=== PATIENT | male | born 1970 | race Caucasian/White ===

== ENCOUNTER 2017-12-01 04:57 | Emergency (ER) | payer OTHER ==
[2017-12-01 05:34] LABS: #Eosinphils 0.1 thou/uL (0.0-0.7); #Lymphocytes 0.6 thou/uL (1.20-3.40); #Monocytes 0.4 thou/uL (0.11-0.59); #Neutrophils 5.5 thou/uL (1.40-6.50); %Basophils 0.2 % (0.0-1.0); %Eosinophils 0.9 % (0.0-10.0); %Lymphocytes 9.1 % (21.0-51.0); %Monocytes 5.8 % (0.0-10.0); Hemoglobin 17.7 g/dL (14.0-18.0); Mean Corpuscular HGB CONC 33.4 g/dL (32.0-36.0); Mean Corpuscular Hemoglobin 31.8 pg (27.0-31.0); Mean Corpuscular Volume 95.2 fl (80.0-94.0); Mean Platelet Volume 6.4 fL (7.4-10.4); Platelet Count 192 thou/uL (130-400); RBC Distribution Width 11.7 % (11.5-14.5); Red Blood Cell (RBC) Count 5.57 mill/uL (4.70-6.10); White Blood Cell (WBC) Count 6.5 thou/uL (4.8-10.8)
[2017-12-01 05:58] LABS: ALT (SGPT) 29 U/L (8-55); AST (SGOT) 22 U/L (5-34); Albumin 4.3 g/dL (3.5-5.0); Alkaline Phosphatase 69 U/L (40-150); Anion Gap 16 mmol/L (10-20); BUN (Urea Nitrogen) 13 mg/dL (8.9-20.6); Bilirubin, Total 0.8 mg/dL (0.2-1.2); Calc. Creatinine Clearance 0 mL/min (70-130); Calcium 9.5 mg/dL (7.8-10.44); Carbon Dioxide 25 mmol/L (22-29); Chloride 103 mmol/L (98-107); Estimated GFR-MDRD 82; Globulin 3.5 g/dL (2.4-3.5); Glucose 103 mg/dL (70-105); Potassium 4.1 mmol/L (3.5-5.1); Protein, Total 7.8 g/dL (6.0-8.3); Sodium 140 mmol/L (136-145)
[2017-12-01] MEDS ORDERED: Dexamethasone 4 mg/ml Vial ONE (05:58)
[2017-12-01] MEDS ORDERED: Ketorolac Tromethamine 30 MG/ML VIAL ONE (05:58)
[2017-12-01] MEDS ORDERED: Ondansetron HCl/PF 4 MG/2 ML Vial ONE (06:07)
--- NOTE | 2017-12-01 09:33 | CT ---
PRELIMINARY REPORT/[facility]/EMERGENCY AFTER HOURS PROCEDURE: EXAM: CT Neck With Intravenous Contrast CLINICAL HISTORY: 47 years old, male; Signs and symptoms; Mass, lump, or swelling in neck; Patient HX: Left sided neck swelling TECHNIQUE: Axial computed tomography images of the neck with intravenous contrast. CONTRAST: 100 mL of ISOVUE administered intravenously. COMPARISON: No relevant prior studies available. FINDINGS: Nasopharynx: Unremarkable. Oropharynx: Unremarkable. No significant tonsillar enlargement. No peritonsillar abscess. Hypopharynx: Unremarkable. Larynx: Unremarkable. Normal epiglottis. Trachea: Unremarkable. Retropharyngeal space: Unremarkable. Submandibular/parotid glands: Bilaterally enlarged mildly hyperenhancing submandibular glands greater on the left with septal edema and minimal surrounding fluid. No definite calculus or mass detected Thyroid: Unremarkable. No enlarged or calcified nodules. Bones/joints: No acute fracture. Soft tissues: Unremarkable. Vasculature: No acute findings. Lymph nodes: Prominent submandibular lymph nodes noted No lymphadenopathy. Lung apices: Unremarkable as visualized. IMPRESSION: Bilateral submandibular sialadenitis greater on the left. No definite calculus, mass or abscess this Thank you for allowing us to participate in the care of your patient. Dictated and Authenticated by: Syed Blake MD 12/01/2017 6:40 AM Central Time ([place] & [place]) FINAL REPORT EMERGENCY AFTER HOURS CT NECK NONCONTRAST: Date: 12/01/17 Time: 0546 hours HISTORY: Left neck pain and swelling. FINDINGS: Findings agree with the preliminary report by Aguilar. The airway is patent. No tonsillar abscess is connor arent. There is bilateral prominence of the submandibular glands suggesting sialadenitis, left greate r than right. POS: [facility]
[2017-12-01] MEDS ORDERED: ISOVUE-370 76%-LOCM 1 ML ONE (09:44)
== END 2017-12-01 06:53 | disposition home or self-care (01) ==
LOC: ERS 04:57
DX: K11.20 Sialoadenitis, unspecified (principal); J02.9 Acute pharyngitis, unspecified; E78.5 Hyperlipidemia, unspecified; I10 Essential (primary) hypertension; Z79.899 Other long term (current) drug therapy
CPT/HCPCS: 70492; 80053; 85025; 87081; 87430; 96374; 96375; J1100; J1885; J2405

== ENCOUNTER 2018-01-08 11:38 | Outpatient (CLI) | payer OTHER ==
--- NOTE | 2018-01-08 13:43 | RAD ---
PA AND LATERAL CHEST: Date: 01/08/18 HISTORY: Sinusitis. FINDINGS: The cardiac silhouette and pulmonary vasculature are within normal limits. The lungs are clear. [place] us structures are intact. IMPRESSION: No acute cardiopulmonary process. POS: [facility]
== END 2018-01-08 11:39 | disposition home or self-care (01) ==
LOC: RAD 11:38
PROVIDERS: ATTEND Family Medicine
DX: J32.9 Chronic sinusitis, unspecified (principal)
CPT/HCPCS: 71046

== ENCOUNTER 2018-01-24 22:59 | Observation (INO) | payer OTHER ==
[2018-01-24] MEDS ORDERED: Bupivacaine 0.5% 10 ML VIAL ONE (23:26)
[2018-01-24] MEDS ORDERED: CEFAZOLIN/Water 2 GM/20 ML SYRINGE ONE (23:44)
--- NOTE | 2018-01-25 00:03 | RAD ---
TWO VIEWS RIGHT INDEX FINGER: Date: 01-24-18 History: Crush injury to right index finger. Patient closed finger in gun safe. FINDINGS: There is a comminuted fracture involving the distal aspect and tuft of the distal phalanx right index finger. There is separation and displacement of fracture fragments. One of the fracture fragments is displaced by approximately 4 mm. Small osseous fragment is also seen just beneath the nail bed. Give n the proximity of this fracture to the nail bed, findings are suggestive of an open fracture. There is subcutaneous edema and laceration involving the distal portion of the right index finger. There is no dislocation. There is a nondisplaced fracture extending into the distal interphalangeal joint at the base of the distal phalanx. IMPRESSION: 1. Comminuted fracture involving the distal phalanx of the right index finger. A portion of the fract ure does extend proximally into the base of the distal phalanx and subsequently into the interphalang eal joint. The fracture is just beneath the nail bed suggesting an open fracture. 2. Subcutaneous soft tissue swelling and laceration distal portion right index finger. POS: [facility]
[2018-01-25] MEDS ORDERED: Ondansetron HCl/PF 4 MG/2 ML Vial IVP PRN (02:59)
[2018-01-25] MEDS ORDERED: Acetaminophen 325 MG TAB PO PRN (02:59)
[2018-01-25] MEDS ORDERED: Ondansetron ODT 4 MG TAB SL PRN (02:59)
[2018-01-25] MEDS ORDERED: Sodium Chloride 0.9% 1,000 ML IV SCH (02:59)
[2018-01-25] MEDS ORDERED: CEFAZOLIN/Water 2 GM/20 ML SYRINGE SLOW IVP SCH (08:30)
[2018-01-25 08:36] VITALS: BMI 28.0
--- NOTE | 2018-01-25 08:45 | HP ---
DATE OF ADMISSION: 01/25/2018 CHIEF COMPLAINT: Right finger pain. HISTORY OF PRESENT ILLNESS: Mr. Mays is a 47-year-old male, who injured his right index finger. Oni ortiz was closing his gun safe when his finger was caught in the safest door. He crushed his fingertip. He had pain and bleeding. He was seen in the emergency department. He was found to have a complex nail bed laceration with distal phalanx fracture and skin laceration. He was irrigated in the emerge ncy department and a dressing was applied. He was given pain control and antibiotics. He has been c omfortable overnight. He is n.p.o. in preparation for surgery. PAST MEDICAL HISTORY: The patient denies active medical problems. PAST SURGICAL HISTORY: Approximately one year ago, he underwent open reduction and internal fixation of left radius and ulna. He has had a previous left index finger partial amputation in the past. IMAGES: X-rays of the hand demonstrate a distal phalanx fracture with displacement. ALLERGIES: No known drug allergies. FAMILY MEDICAL HISTORY: Noncontributory. PHYSICAL EXAMINATION: VITAL SIGNS: The patient is afebrile, normotensive, 98% on room air. GENERAL: He is alert, sitting upright, in no apparent distress. RESPIRATORY: Breathing comfortably. ABDOMEN: Soft, nontender, nondistended. MUSCULOSKELETAL: The patient's right hand has a bandage in place. His hand is warm and well perfuse d. There is no active drainage or bleeding. IMPRESSION: Complex nail bed laceration with distal phalanx fracture, right index finger. PLAN: The patient will need to go to the operating room for irrigation of his wounds as well as clos ure. We will repair the nail bed, close the skin, and reduce the fracture. I will likely place a K wire in the distal phalanx fracture. He can discharge to home after this. We will put him on an ant ibiotic for 5 days. He will keep the hand elevated. N.p.o. until after surgery.
[2018-01-25 09:16] VITALS: BP 182/121; TEMP 97.7
[2018-01-25] MEDS ORDERED: Midazolam HCl 2 mg/2 ml Vial ONE (09:46)
[2018-01-25] MEDS ORDERED: CEFAZOLIN/Water 2 GM/20 ML SYRINGE ONE (09:46)
[2018-01-25] MEDS ORDERED: Fentanyl 250 MCG/5 ML VIAL ONE ×2 (09:48→10:37)
[2018-01-25] MEDS ORDERED: Neomycin-Polymyxin 1 ML AMP ONE (09:49)
[2018-01-25] MEDS ORDERED: HYDROcodone/Acetaminophen 10/325 mg Tablet PO PRN (10:23)
[2018-01-25] MEDS ORDERED: Ropivacaine 0.2% HCl/PF 20 ML ONE (10:58)
[2018-01-25] MEDS ORDERED: Bupivacaine 0.5% 10 ML VIAL ONE ×2 (11:19→11:20)
--- NOTE | 2018-01-25 12:13 | OP ---
DATE OF PROCEDURE: 01/25/2018 OPERATIONS: Right index finger complex nail bed laceration repair and reduction of the distal phalan x fracture. PREOPERATIVE DIAGNOSES: Traumatic laceration to the index finger with nail bed laceration and distal phalanx fracture. POSTOPERATIVE DIAGNOSES: Traumatic laceration to the index finger with nail bed laceration and dista l phalanx fracture. COMPLICATIONS: None. ESTIMATED BLOOD LOSS: Minimal. SURGEON: Herve Franklin M.D. ANESTHESIA: General plus local. INDICATIONS: Mr. Mays is a 47-year-old male who injured his index finger in a gun safe. He had a complex laceration and disruption with distal phalanx fracture. He was indicated for operative inter vention to clean the wound and repair the nail bed as well as reduce the distal phalanx. He elected to proceed with this. DESCRIPTION OF PROCEDURE: Mr. Mays was identified in the preoperative holding area. He was vince d to the operating room after his correct extremity was marked. He was positioned supine. General a nesthesia was administered. The right upper extremity was prepped and draped in sterile fashion. We began the procedure by trimming the skin edges of injured tissue. We thoroughly irrigated with co pious lavage all of the wounds, which were complex. He had a distal phalanx fracture of the bone sienna t was irrigated as well. At this point, we elevated the nail from the nail bed. This was soaked in Betadine on the back table. We then began repair. We used a 4-0 Monocryl suture to repair the compl ex lacerations. We repaired the laceration to the finger pulp as well as the corners of the nail bed . We then proceeded to repair the nail bed itself. Finally, we tucked the nail back into its nail f old and held this in position using a suture. At this point, we evaluated with intraoperative x-ray. The fracture was reduced and there was no need for pinning. At this point, again we irrigated the wounds. We then placed a sterile dressing and an Alumafoam splint. The patient was taken to the rec overy room in good condition without complication.
--- NOTE | 2018-01-25 14:39 | RAD ---
TWO INTRAOPERATIVE FLUOROSCOPIC IMAGES RIGHT INDEX FINGER: 01/25/2018 HISTORY: Fracture of the distal phalanx right index finger. Fracture repair. FINDINGS/IMPRESSION: Two intraoperative fluoroscopic images of the right index finger are submitted for interpretation. C omminuted fracture involving the distal phalanx and predominantly tuft of the distal phalanx right in dex finger is again noted, but there is improvement in alignment of the fracture fragments. Subcutan eous edema and soft tissue irregularity is present. Correlation with intraoperative findings is elis mmended. POS: [facility]
[2018-01-25] MEDS ORDERED: Ondansetron HCl/PF 4 MG/2 ML Vial ONE (17:19)
[2018-01-25] MEDS ORDERED: PROPOFOL 200 MG/20 ML VIAL ONE (17:19)
[2018-01-25] MEDS ORDERED: ePHEDrine/0.9% NaCl/PF SYRINGE 50 mg/10 ml ONE (17:19)
[2018-01-25] MEDS ORDERED: Lidocaine 1% PF 5 ML VIAL ONE (17:19)
[2018-01-25] MEDS ORDERED: Dexamethasone 20 MG/5 ML VIAL ONE (17:19)
[2018-01-25] MEDS ORDERED: Ketorolac Tromethamine 30 MG/ML VIAL ONE (17:19)
--- NOTE | 2018-01-26 13:34 | DIS ---
DATE OF ADMISSION: 01/25/2018 DATE OF DISCHARGE: 01/25/2018 HOSPITAL COURSE: Mr. Mays is a 47-year-old male who crushed the index finger on his left hand with a gun safe. He was admitted to the hospital and then taken to the operating room for repair of the fingertip with irrigation and debridement. He tolerated the procedure as well as had a normal postop erative course. Pain was controlled. He tolerated an oral diet. DISCHARGE INSTRUCTIONS: The patient will change his dressing daily. He will take 5 days of antibiot ic and has appropriate pain control. He will follow up in the Orthopedic Clinic in 10-14 days.
== END 2018-01-25 16:14 | disposition home or self-care (01) ==
LOC: ERS 22:59 → SURG A 01-25 00:15
PROVIDERS: ADMIT Orthopaedic Surgery; ATTEND Orthopaedic Surgery
PROC: 0HQFXZZ Repair Right Hand Skin, External Approach (ICD-10-PCS; principal; 2018-01-25)
PROC: 0PST0ZZ Reposition Right Finger Phalanx, Open Approach (ICD-10-PCS; 2018-01-25)
DX: S61.310A Laceration without foreign body of right index finger with damage to nail, initial encounter (principal); S62.630A Displaced fracture of distal phalanx of right index finger, initial encounter for closed fracture; E78.5 Hyperlipidemia, unspecified; I10 Essential (primary) hypertension; Z79.899 Other long term (current) drug therapy; Z98.890 Other specified postprocedural states; W23.0XXA Caught, crushed, jammed, or pinched between moving objects, initial encounter
CPT/HCPCS: 76000; 96374; 96375; 96376; G0378; J1100; J1885; J2001; J2250; J2270; J2405; J2704; J2795; J3010; J3490

== ENCOUNTER 2018-05-06 09:58 | Outpatient (CLI) | payer OTHER ==
--- NOTE | 2018-05-06 13:23 | MRI ---
MRI LUMBAR SPINE WITHOUT CONTRAST: DATE: 05/06/18. COMPARISON: None. HISTORY: Back pain and right lower extremity pain/radiculopathy. TECHNIQUE: Multiplanar, multisequence MR imaging of the lumbar spine is provided without contrast media. FINDINGS: Sagittal STIR imaging demonstrates no focal area of osseous marrow edema. Lumbar vertebral body heig ht and alignment appears within normal limits. The conus medullaris terminates at the T12-L1 level. T12-L1: There is mild anterior osteophyte formation. No central canal or neural foraminal stenosis. L1-2: Mild bilateral facet hypertrophy. Intervertebral disk height and signal intensity is within n ormal limits with no significant central canal or neural foraminal stenosis. L2-3: Mild bilateral facet hypertrophy. Intervertebral disk height and signal intensity is within n ormal limits with no significant central canal or neural foraminal stenosis. L3-4: Mild bilateral facet hypertrophy. Intervertebral disk height and signal intensity is within n ormal limits with no significant central canal or neural foraminal stenosis. L4-5: There is disk space narrowing, disk desiccation, and mild disk bulge. No significant central canal stenosis. Mild bilateral facet hypertrophy with no significant neural foraminal stenosis. L5-S1: There is disk space narrowing, disk desiccation, and disk bulge. There is a small disk herni ation in the left paracentral region with mild inferior migration. There is mild associated left-luis eduardo ed central canal stenosis. There is a small disk protrusion in the right foraminal region and there is right facet hypertrophy with a mild degree of neural foraminal stenosis. Imaged retroperitoneal structures demonstrate no acute findings. IMPRESSION: Lower lumbar spine degenerative disk disease as described above. POS: [facility]
== END 2018-05-06 09:59 | disposition home or self-care (01) ==
LOC: MRI 09:58
PROVIDERS: ATTEND Orthopaedic Surgery
DX: M51.16 Intervertebral disc disorders with radiculopathy, lumbar region (principal); M51.37 Other intervertebral disc degeneration, lumbosacral region
CPT/HCPCS: 72148

== ENCOUNTER 2018-08-25 07:22 | Outpatient (CLI) | payer OTHER ==
--- NOTE | 2018-08-25 09:14 | CT ---
CT LUMBAR SPINE WITHOUT CONTRAST: History: Back pain radiating down the right leg x 4 months. Worsening symptoms. Comparison: None. Correlation: MRI lumbar spine 05-06-18. FINDINGS: Lumbar spine vertebral body height is maintained. No evidence of vertebral body fracture. There is a left L5 pars defect. No associated spondylolisthesis. Retroperitoneal structures are unremarkable. Visualized solid organs are unremarkable. Limited evaluation without contrast of the central spinal canal and neural foramina by technique. T10-11, T11-12: No significant central canal stenosis or foraminal narrowing. T12-L1: No significant central canal stenosis. Neural foramina are patent. L1-2: No significant central canal stenosis. Foramina are patent. L2-3: No significant central canal stenosis. Neural foramina are patent. L3-4: No significant central canal stenosis. Neural foramina are patent. L4-5: Generalized disc bulge, ligamentum flavum thickening result in mild central canal stenosis. Mil d right and mild to moderate left foraminal narrowing. L5-S1: Vacuum disc phenomenon. There is a generalized disc bulge with left subarticular component. Th ere is obscuration of the traversing left S1 nerve root. There is narrowing of the thecal sac due to disc material and hypertrophy, along with epidural lipomatosis. Moderate right and mild left foramina l narrowing. IMPRESSION: 1. Left L5 pars defect. No spondylosis. 2. Degenerative disc disease at L5-S1 with narrowing of the left thecal sac zone. There is obscuratio n transversing the left S1 nerve root. POS: [facility]
== END 2018-08-25 07:23 | disposition home or self-care (01) ==
LOC: CT 07:22
PROVIDERS: ATTEND Neurological Surgery
DX: M51.16 Intervertebral disc disorders with radiculopathy, lumbar region (principal); M51.36 Other intervertebral disc degeneration, lumbar region; M48.07 Spinal stenosis, lumbosacral region
CPT/HCPCS: 72131

== ENCOUNTER 2018-08-27 05:51 | Day surgery (SDC) | payer OTHER ==
[2018-08-26 11:06] VITALS: BMI 28.8
--- NOTE | 2018-08-27 00:21 | HP ---
HISTORY OF PRESENT ILLNESS: Mr. 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 An MRI from [place] reveals what amounts to be significant amount of epidural lipomatosis at the level of L5-S1. Most looks to be causing stress and impingement upon the exiting right L5 ne rve root. There are also some mild areas of foraminal bony stenosis. PAST MEDICAL HISTORY: No major active medical problems. PAST SURGICAL HISTORY: Open reduction and internal fixation, left radius and ulna. ALLERGIES: No known drug allergies. FAMILY HISTORY: Noncontributory. CURRENT MEDICATIONS: None. PHYSICAL EXAMINATION: NEUROLOGIC: The patient is alert and oriented x3. Gait is mildly antalgic. EXTREMITIES: Lower extremity motor exam is normal. He does have some limited range of motion second sánchez to pain in the right lower extremity. ASSESSMENT: Lumbar radiculopathy. PLAN: Dr. Wise met with the patient, reviewed imaging and advocated for a right L5-S1 decompression . He explained to the patient the risks, benefits, and alternatives to the procedure. The patient e xpressed understanding and would like to move forward with surgery as discussed. I do believe the janet gil is mentally competent and capable of making medical decisions for himself and we will move foreric sheehan with surgery as planned. Paresh Khalil PA-C dictating for Dr. Wise.
[2018-08-27] MEDS ORDERED: CEFAZOLIN/Water 2 GM/20 ML SYRINGE ONE ×2 (06:04→12:59)
[2018-08-27] MEDS ORDERED: Midazolam HCl 2 mg/2 ml Vial ONE (06:20)
[2018-08-27] MEDS ORDERED: Thrombin 5000 UNITS/5 ML VIAL ONE (06:21)
[2018-08-27] MEDS ORDERED: Bupivacaine HCl 0.5%/Epinephrine 1:200,000/PF 30 ml Vial ONE (06:21)
[2018-08-27] MEDS ORDERED: Fentanyl 100 MCG/2 ML VIAL ONE ×2 (07:03→09:10)
[2018-08-27] MEDS ORDERED: Meperidine HCl/PF 25 MG/ML VIAL ONE (08:26)
--- NOTE | 2018-08-27 08:30 | OP ---
DATE OF PROCEDURE: 08/27/2018 SURGEON: Madhav Wise M.D. [employer]AN[employer] MANAGER: Paresh Khalil PA-C. INDICATION: Pain. DIAGNOSIS: Lumbar radiculopathy. PROCEDURE: Bilateral L5 decompression. ANESTHESIA: General. TECHNIQUE: The patient was brought into the operating room and placed under general anesthesia. He was flipped from a supine to prone position on the operating room table. A linear incision was plann ed over the L5 segment. After prepping and draping and after an appropriate pause, the incision was created. Soft tissues were swept away from midline. Self-retaining retractors were placed in the wo und for optimal exposure. A C-arm image was obtained, confirmed the appropriate level. After confir thomas the appropriate level, an Adson rongeur was used to remove the spinous process of L5. High-spee d cutting drill bit as well as 2, 3 and 4-mm Kerrison was used to perform a laminectomy up through th e inferior aspect of L4. The L5 pedicles could be palpated bilaterally. The descending and exiting nerve root was identified bilaterally. The laminectomy was extended laterally to encompass the media l aspect of the facet joint in order to fully decompress the lateral recesses. The patient did have a copious amount of epidural fat present along the anterior aspect of the thecal sac and beneath both L5 nerve roots. The majority of this was suctioned away and removed. A Rizzo ball was passed into the L5 foramina bilaterally, both of which were widely patent. The wound was then copiously irrigat ed. Hemostasis was maintained throughout. The wound was then closed in anatomic layers and a pressu re dressing was applied. There were no known procedural complications.
[2018-08-27] MEDS ORDERED: HYDROmorphone 2 MG/ML VIAL ONE (08:48)
[2018-08-27] MEDS ORDERED: Ondansetron ODT 4 MG TAB ONE (10:22)
[2018-08-27] MEDS ORDERED: Glycopyrrolate 0.2 MG/ML 5 ML SYRINGE ONE (10:22)
[2018-08-27] MEDS ORDERED: Ketorolac Tromethamine 30 MG/ML VIAL ONE (10:22)
[2018-08-27] MEDS ORDERED: Dexamethasone 20 MG/5 ML VIAL ONE (10:22)
[2018-08-27] MEDS ORDERED: Lidocaine 1% PF 5 ML VIAL ONE (10:22)
[2018-08-27] MEDS ORDERED: PROPOFOL 200 MG/20 ML VIAL ONE (10:22)
[2018-08-27] MEDS ORDERED: Ondansetron HCl/PF 4 MG/2 ML Vial ONE (10:22)
[2018-08-27] MEDS ORDERED: Promethazine HCl 25 MG/ML VIAL ONE (11:31)
[2018-08-27] MEDS ORDERED: HYDROcodone/Acetaminophen 5/325 mg Tablet ONE ×2 (12:25→13:08)
== END 2018-08-27 13:20 | disposition home or self-care (01) ==
LOC: SDC 05:51 → EEVIPCON 05:51 → SDC 13:20
PROVIDERS: ATTEND Neurological Surgery
PROC: 01NB0ZZ Release Lumbar Nerve, Open Approach (ICD-10-PCS; principal; 2018-08-27)
DX: M54.16 Radiculopathy, lumbar region (principal)
CPT/HCPCS: 76001; 96374; 96375; J0670; J1100; J1170; J1885; J2001; J2175; J2250; J2405; J2550; J2704; J3010; Q0162

== ENCOUNTER 2018-09-23 10:34 | Outpatient (CLI) | payer OTHER ==
--- NOTE | 2018-09-23 13:16 | CT ---
CT LUMBAR SPINE WITHOUT CONTRAST: INDICATION: History of laminectomy 1 month ago with concern for possible seroma. FINDINGS: Lack of IV contrast limits evaluation for soft tissue fluid collections. There are laminectomy alfaro es at L5. There is vacuum disk phenomenon at L5-S1. There is a mild broad-based bulge seen at L5-S1 with mild bilateral neural foraminal narrowing. There is mild broad-based bulge at L4-5 with mild b ilateral neural foraminal narrowing. There is inflammatory infiltration of the paraspinal musculatur e at the laminectomy site at L5. No overt drainable fluid collection is grossly evident within limit ations of this noncontrast exam. No acute fracture is evident. There is a 3 mm calculus involving t he inferior pole of the right kidney. There are stable left unilateral pars defect at L5. IMPRESSION: 1. Laminectomy changes at L5. There is inflammatory infiltration of the paraspinal musculature and overlying subcutaneous tissues at the laminectomy site. The lack of IV contrast limits evaluation fo r seroma or abscess. 2. Mild neural foraminal narrowing at L4-5 and L5-S1 appears similar to a comparison CT examination dated 08/25/2018. POS: [facility]
== END 2018-09-23 10:35 | disposition home or self-care (01) ==
LOC: TBSIIMAG 10:34
PROVIDERS: ATTEND Neurological Surgery
DX: M54.16 Radiculopathy, lumbar region (principal); M99.83 Other biomechanical lesions of lumbar region; M99.84 Other biomechanical lesions of sacral region; Z98.890 Other specified postprocedural states
CPT/HCPCS: 72131

== ENCOUNTER 2018-11-17 11:57 | Outpatient (CLI) | payer OTHER ==
--- NOTE | 2018-11-17 15:01 | MRI ---
MRI RIGHT SHOULDER: Date: 11-17-18 Provided Clinical History: Right shoulder pain. FINDINGS: There is full thickness partial width tearing involving the caudal fibers of the subscapularis tendon without significant retraction. The more cranial aspect of the distal subscapularis tendon demonstra te high grade partial thickness undersurface tearing. The components of the rotator cuff appear other dean intact. There is medial subluxation of the long head biceps tendon within the bicipital groove t hat may reflect bicipital sling injury. There is no josafat biceps tendon dislocation. There is abnormal signal present within the superior labrum compatible with SLAP tear with propogatio n to involve a posterior/superior glenoid labrum in a nondisplaced manner. There is high grade partia l tearing involving the humeral attachment of the anterior band of the inferior glenohumeral ligament . There is conspicuous periarticular fluid signal intensity on the basis of the subscapularis and inf erior glenohumeral ligament tears. The amount of fluid within the glenohumeral joint appears physiologic. There is muscular strain noted involving the anterior deltoid muscle, low grade. Regional marrow and muscular signal appear otherwi se unremarkable with the exception of subcortical cyst like change within the lesser and greater tube rosities. Acromioclavicular joint osteoarthrosis is demonstrated which produces mass effect upon the subjacent supraspinatus. Rotator cuff muscular volume appears preserved. IMPRESSION: 1. Tearing of the subscapularis tendon distally as described above, including a full thickness compon ent. There is medial subluxation of the long head biceps tendon within the bicipital groove that may reflect bicipital sling injury. 2. High grade partial tearing of the humeral attachment of the anterior band of the inferior glenohum eral ligament. 3. SLAP tear. 4. Acromioclavicular joint osteoarthrosis. POS: [facility]
== END 2018-11-17 11:58 | disposition home or self-care (01) ==
LOC: MRI 11:57
PROVIDERS: ATTEND Orthopaedic Surgery
DX: S46.011A Strain of muscle(s) and tendon(s) of the rotator cuff of right shoulder, initial encounter (principal); S43.431A Superior glenoid labrum lesion of right shoulder, initial encounter; M19.011 Primary osteoarthritis, right shoulder

== ENCOUNTER 2018-11-18 07:14 | Day surgery (SDC) | payer OTHER ==
[2018-11-17 14:53] VITALS: BMI 28.0
[2018-11-18] MEDS ORDERED: Midazolam HCl 2 mg/2 ml Vial ONE (08:01)
[2018-11-18] MEDS ORDERED: CEFAZOLIN 2 GM/50 ML BAG ONE (08:01)
[2018-11-18] MEDS ORDERED: Fentanyl 100 MCG/2 ML VIAL ONE ×3 (08:02→11:33)
[2018-11-18] MEDS ORDERED: traMADol HCl 50 MG TAB PO PRN ×2 (08:54)
[2018-11-18] MEDS ORDERED: Ondansetron PF 4 MG/2 ML Vial IVP PRN (08:54)
[2018-11-18] MEDS ORDERED: Promethazine HCl 25 MG/ML VIAL IM PRN (08:54)
[2018-11-18] MEDS ORDERED: HYDROcodone/Acetaminophen 10/325 mg Tablet PO PRN ×2 (08:54)
[2018-11-18] MEDS ORDERED: Ropivacaine 0.2% 550 ML 550 ML NERVE BLCK SCH (08:54)
[2018-11-18] MEDS ORDERED: Zolpidem Tartrate 5 MG TAB PO PRN (08:54)
[2018-11-18] MEDS ORDERED: Fentanyl 100 MCG/2 ML VIAL IV PRN (08:55)
--- NOTE | 2018-11-18 10:44 | HP ---
HISTORY OF PRESENT ILLNESS: This is a very pleasant 48-year-old man who was doing some planks, trying to rehab his back and then felt a pop in his shoulder. Since that time, he has had very weak usage of the shoulder with loss of active range of motion. PAST MEDICAL HISTORY: Positive for spine surgery, migraines, hypertension, and esophageal reflux. ALLERGIES: NONE. SOCIAL HISTORY: Drinks socially. Does not smoke cigarettes. Very often, occasionally while fishing. REVIEW OF SYSTEMS: Negative for chest pain. Dyspnea on exertion. PHYSICAL EXAMINATION: GENERAL: Shows a pleasant man, in no distress. MUSCULOSKELETAL: Shoulder has passive flexion of 130 degrees with active flexion of about 90. External rotation is about 20 degrees with great external rotation strength, but very poor internal rotation strength with elevation of the elbow, so we called subscapularis test. Very tender over the bicipital groove, bruising over the proximal humerus. Neurovascularly intact. 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 PLAN: Is for open subscapularis repair and biceps tenodesis. He understands the risks of infection blood clots, transfusion, and . He elects to proceed with surgery. Job ID: [id number]
--- NOTE | 2018-11-18 11:26 | OP ---
DATE OF PROCEDURE: 11/18/2018 PREOPERATIVE DIAGNOSES: Subscapularis tear and biceps tendinitis. POSTOPERATIVE DIAGNOSES: Subscapularis tear and biceps tendinitis. PROCEDURE PERFORMED: Open repair of subscapularis tendon and biceps tenodesis. PHARMACIST: None. BLOOD LOSS: 200. SPECIMEN: None. DRAINS: None. COMPLICATIONS: None. DESCRIPTION OF PROCEDURE: The patient was taken to the operating room, where general anesthesia was induced. He was placed in a beach chair position. I made a standard deltopectoral approach and elevated the conjoined tendon. The subscapularis rupture was easily identified and retracted somewhat medially. I placed four large #5 Ethibond sutures through the tendon in a Trevor-Giovanni fashion and tagged it for later repair. I freed up the subscapularis that had a nice consistency. The biceps tendon was removed from superior glenoid tubercle. I trimmed about an inch off this and I prepared it with a Krackow type suture, measured it to the 7, I drilled the 7-hole, placed the 7 Bio-Tenodesis screw with the tendon in the hole and tied over the screw. Irrigation was performed. The subscapularis was then repaired through bone tunnels all the way to the lesser tuberosity through the cyst at the greater tuberosity and the cuff for excellent watertight repair. Also repaired the rotator interval with #1 Ethibond sutures. Irrigation was performed. Subcutaneous tissue was closed with 2-0 Vicryl and the skin was closed purvi. Sterile dressing applied. There were no complications. Job ID: [id number]
[2018-11-18] MEDS ORDERED: Ketorolac Tromethamine 30 MG/ML VIAL IVP SCH (12:00)
[2018-11-18] MEDS ORDERED: PROPOFOL 200 MG/20 ML VIAL ONE (20:51)
[2018-11-18] MEDS ORDERED: Lidocaine 1% PF 5 ML VIAL ONE (20:51)
[2018-11-18] MEDS ORDERED: Ondansetron PF 4 MG/2 ML Vial ONE (20:51)
[2018-11-18] MEDS ORDERED: Glycopyrrolate 0.2 MG/ML 5 ML SYRINGE ONE (20:51)
[2018-11-18] MEDS ORDERED: Bupivacaine 0.25% HCL 30 ML VIAL ONE (20:51)
[2018-11-18] MEDS ORDERED: Ketorolac Tromethamine 30 MG/ML VIAL ONE (20:51)
== END 2018-11-18 14:15 | disposition home or self-care (01) ==
LOC: SDC 07:14
PROVIDERS: ATTEND Orthopaedic Surgery
PROC: 0LQ10ZZ Repair Right Shoulder Tendon, Open Approach (ICD-10-PCS; principal; 2018-11-18)
PROC: 0LS10ZZ Reposition Right Shoulder Tendon, Open Approach (ICD-10-PCS; principal; 2018-11-18)
DX: S46.011A Strain of muscle(s) and tendon(s) of the rotator cuff of right shoulder, initial encounter (principal); M75.21 Bicipital tendinitis, right shoulder; S43.431A Superior glenoid labrum lesion of right shoulder, initial encounter; G43.909 Migraine, unspecified, not intractable, without status migrainosus; I10 Essential (primary) hypertension; K21.9 Gastro-esophageal reflux disease without esophagitis; F17.210 Nicotine dependence, cigarettes, uncomplicated; J45.909 Unspecified asthma, uncomplicated; Z79.51 Long term (current) use of inhaled steroids; Z79.899 Other long term (current) drug therapy; Z98.890 Other specified postprocedural states; X50.1XXA Overexertion from prolonged static or awkward postures, initial encounter
CPT/HCPCS: 93005; 93010; 96374; A4306; C1713; J1885; J2001; J2250; J2405; J2704; J2795; J3010; J7620; S0020

== ENCOUNTER 2018-12-11 22:40 | Inpatient (IN) | payer OTHER ==
[2018-12-12 01:20] VITALS: BMI 28.4
[2018-12-12] MEDS ORDERED: PROVENTIL INHALER 6.7 G (200 INHALATIONS) INH PRN (01:48)
[2018-12-12] MEDS ORDERED: hydrALAZINE 20 MG/ML VIAL SLOW IVP PRN (01:50)
[2018-12-12] MEDS ORDERED: Ondansetron PF 4 MG/2 ML Vial IVP PRN (01:53)
[2018-12-12] MEDS ORDERED: Amlodipine 5 MG TAB PO SCH ×2 (02:00→21:00)
[2018-12-12 02:15] LABS: #Lymphocytes 0.7 thou/uL (1.20-3.40); #Monocytes 0.9 thou/uL (0.11-0.59); #Neutrophils 5.3 thou/uL (1.40-6.50); %Basophils 0.4 % (0.0-1.0); %Eosinophils 0.3 % (0.0-10.0); %Lymphocytes 9.8 % (21.0-51.0); %Monocytes 13.1 % (0.0-10.0); %Neutrophils 76.4 % (42.0-75.0); Hemoglobin 13.9 g/dL (14.0-18.0); Mean Corpuscular HGB CONC 34.5 g/dL (32.0-36.0); Mean Corpuscular Hemoglobin 32.7 pg (27.0-31.0); Platelet Count 179 thou/uL (130-400); RBC Distribution Width 11.6 % (11.5-14.5); Red Blood Cell (RBC) Count 4.23 mill/uL (4.70-6.10); White Blood Cell (WBC) Count 6.9 thou/uL (4.8-10.8)
[2018-12-12] MEDS ORDERED: Losartan 25 MG TAB PO SCH ×2 (02:15→21:00)
[2018-12-12] MEDS: Sodium Chloride 0.9% 1,000 ML IV SCH ×3 (02:15→20:45)
[2018-12-12] MEDS: cefTRIAXone\\ROCEPHIN 1 GM in Sodium Chloride 0.9% 100 ML IVPB SCH (02:16)
[2018-12-12 02:29] LABS: Anion Gap 15 mmol/L (10-20); BUN (Urea Nitrogen) 26 mg/dL (8.9-20.6); Calc. Creatinine Clearance 53 mL/min (70-130); Calcium 9.1 mg/dL (7.8-10.44); Carbon Dioxide 21 mmol/L (22-29); Chloride 110 mmol/L (98-107); Estimated GFR-MDRD 34; Glucose 113 mg/dL (70-105); Lipase 8 U/L (8-78); Potassium 3.5 mmol/L (3.5-5.1); Sodium 142 mmol/L (136-145)
[2018-12-12] MEDS: Morphine 2 MG/ML SYRINGE SLOW IVP PRN (06:02)
--- NOTE | 2018-12-12 08:00 | ULT ---
RIGHT UPPER QUADRANT ULTRASOUND: Date: 12/12/18 PROVIDED CLINICAL HISTORY: Abdominal pain. FINDINGS: The visualized portions of the pancreas appear normal. The liver demonstrates no evidence for mass or intrahepatic biliary ductal dilatation. Fatty infiltration of the liver is seen. The gallbladder dem onstrates no stones, wall thickening, or pericholecystic fluid. Right kidney demonstrates no evidence for hydronephrosis or mass. Echogenic focus involving the right kidney in the mid portion may reflec t nonobstructing calculus. IMPRESSION: `. Possible small, nonobstructing right renal calculus. 2. Fatty infiltration of liver. 3. Otherwise unremarkable right upper quadrant ultrasound. POS: [facility]
[2018-12-12] MEDS: Fluticasone Propionate Nasal Spray 16 gm Bottle NASAL SCH (08:06)
[2018-12-12] MEDS: Heparin 5,000 UNITS/ML VIAL SC SCH ×3 (08:06→20:43)
--- NOTE | 2018-12-12 12:14 | PDOC.PN ---
- Subjective Encounter Start Date: 12/12/18 Encounter Start Time: 12:00 Subjective: f/u for abd pain of unclear etiology. States feeling better overall and -: tolerating water intake. - Objective Resuscitation Status - Order Detail: 12/12/18 01:53 Resuscitation Status Routine Resuscitation Status: FULL: Full Resuscitation MAR Reviewed: Yes Vital Signs & Weight: Vital Signs (12 hours) Temp Pulse Resp BP Pulse Ox 12/12/18 08:08 98.2 F 81 18 147/89 H 94 L 12/12/18 08:00 94 L 12/12/18 07:51 70 15 99 12/12/18 03:42 98.3 F 82 18 130/81 97 12/12/18 01:15 98.1 F 78 18 171/111 H 95 Weight Weight 192 lb 9.6 oz I&O: 12/11/18 12/12/18 12/13/18 06:59 06:59 06:59 Intake Total 460 Balance 460 Result Diagrams: 12/12/18 02:03 12/12/18 02:03 Radiology Reviewed by me: Yes (ABD sono - neg, CT abd/pel - no acute findings) Phys Exam - Physical Examination Constitutional: NAD HEENT: PERRLA, sclera anicteric, oral pharynx no lesions Neck: no nodes, supple, full ROM Respiratory: no wheezing, no rales, no rhonchi, clear to auscultation bilateral S1, S2 Cardiovascular: RRR, no significant murmur, no rub, gallop Gastrointestinal: soft, non-tender, no distention, positive bowel sounds Musculoskeletal: no edema, pulses present Neurological: normal sensation, moves all 4 limbs Psychiatric: A&O x 3 Skin: normal turgor, cap refill <2 seconds Dx/Plan (1) MICHAEL (acute kidney injury) Code(s): N17.9 - ACUTE KIDNEY FAILURE, UNSPECIFIED Status: Acute Comment: Likely multifactorial given NSAIDs, Cozaar and dehydration, avoid nephrotoxic meds and continue IVF's, serial creatinine (2) Abdominal pain Code(s): R10.9 - UNSPECIFIED ABDOMINAL PAIN Status: Acute Qualifiers: Abdominal location: generalized Qualified Code(s): R10.84 - Generalized abdominal pain Comment: Etiology unclear, resolving, continue IVF's, full liquids (3) HTN (hypertension) Code(s): I10 - ESSENTIAL (PRIMARY) HYPERTENSION Status: Chronic Qualifiers: Hypertension type: essential hypertension Qualified Code(s): I10 - Essential (primary) hypertension Comment: Stable currently, hold Cozaar due to MICHAEL, continue Metoprolol and Amlodipine (4) GERD (gastroesophageal reflux disease) Code(s): K21.9 - GASTRO-ESOPHAGEAL REFLUX DISEASE WITHOUT ESOPHAGITIS Status: Chronic Comment: Continue PPI, may need outpt endoscopy - Plan out of bed/ambulate Stable currently -: Continue IVF's -: Hold Cozaar -: Start Full Liquid diet -: AM lab: CMP, CBC * Likely home in 24h
--- NOTE | 2018-12-12 12:47 | HP ---
PRIMARY CARE DOCTOR: Marcial Smith MD CODE STATUS: Full code. TIME OF EVALUATION: 1:50 a.m. CHIEF COMPLAINT: Abdominal pain. HISTORY OF PRESENT ILLNESS: This is a 48-year-old male patient with past medical history of hypertension, obesity, hyperlipidemia, mild intermittent asthma without complication, GERD, and acute kidney injury. The patient came to the hospital, transferred from [facility] after been admitted there 24 hours ago. The patient presented with severe abdominal pain that was in the epigastric area radiated to the back, pain is 10/10. No clear triggers, no alleviating factors. Only associated event that patient can recall is eating at [facility] Thursday evening. The patient reports no fever. The patient had some nausea and vomiting, he reported that was undigested food. Symptoms were severe. The patient received workup. CT was done. There was possible inflammation of the tail of the pancreas on the CT and also he was found to have acute kidney injury, also uncontrolled blood pressure. For those reasons, he was transferred here and also because the patient belongs to our area and requested to be transfer for that reason. REVIEW OF SYSTEMS: CONSTITUTIONAL: No fever, chills, or generalized weakness. RESPIRATORY: No cough or sputum production. No shortness of breath. CARDIOVASCULAR: No chest pain or palpitation. GASTROINTESTINAL: The patient had nausea, vomiting. No diarrhea. The patient has severe abdominal pain. 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 GENITOURINARY: No burning on urination. EXTREMITIES: No leg swelling. All other systems were reviewed and negative except for the findings mentioned above. PAST MEDICAL HISTORY: As mentioned in HPI. FAMILY HISTORY: Noncontributory for current presentation. SOCIAL HISTORY: The patient lives with family. ALLERGIES: NO KNOWN DRUG ALLERGIES REPORTED TO MEDICATIONS. HOME MEDICATIONS: The patient takes inhalers for asthma. The patient takes Toprol, amlodipine, and losartan. PHYSICAL EXAMINATION: VITAL SIGNS: On presentation, blood pressure was 171/111, heart rate was normal, saturation was normal. The pain was 5/10. GENERAL APPEARANCE: The patient is alert, oriented, no acute distress. HEENT: Eyes, normal conjunctivae. Moist oral mucosa. Anicteric. No JVD. RESPIRATORY: Bilateral air entry. No rales. No wheezes. Symmetric expansion. CARDIOVASCULAR: Normal rate, regular rhythm. No murmurs. No gallops. No edema. ABDOMEN: Soft, tender. Normal bowel sounds. MUSCULOSKELETAL: Baseline range of motion and strength, no tenderness. SKIN: Warm, intact. No pallor. No rash. No redness. Peripheral pulses are present. Capillary refill seems to be intact. NEUROLOGIC: No evidence of any new focal weakness. Baseline speech. Cranial nerves seems to be intact. PSYCHIATRIC: The patient is in good mood. No anxiety. Oriented, optimal judgment. RADIOLOGY DATA: The patient has abdominal and pelvis CT without contrast that was reported as above to my examination secondary to lack of GI interventions, nonspecific inflammatory changes with both . Right renal stone without hydronephrosis in right urethra is described as a 1-mm stone in the left lower kidney pole. Soft tissue stranding adjacent to the tail of the pancreas may represent early pancreatitis. LABORATORY DATA: Labs were reviewed, they were drawn prior to transfer. New labs have been sent here in the hospital and these labs are of 24 hours. White count 7.4, hemoglobin 14.3, hematocrit 42.6, and platelets 187. Sodium 140, potassium 3.8, chloride 108, CO2 31, BUN 26, creatinine 2.63, GFR 26, glucose 134, calcium is 9.3. Alkaline phosphatase is 85. LFTs were negative. ASSESSMENT AND PLAN: The patient will be placed in the hospital for following medical problems: 1. Abdominal pain of unclear etiology. The patient has normal lipase with very minimal stranding of the tail of the pancreas. Acute pancreatitis uncontrolled pain, diagnosed similar pain, could be any gallbladder etiology. We will do gallbladder ultrasound in the morning, HIDA scan will be performed if there is no other significant etiology found for the abdominal pain. For now, we will keep the patient n.p.o., advance diet in the morning. Also ultrasound if patient continue to improve. 2. Intractable pain. The patient is still now in pain 5/10. The pain is located in epigastric area radiating to the back, mostly on the right side. The patient will need morphine for optimal pain control as inpatient. 3. Uncontrolled hypertension. The patient presented with systolic blood pressure 171, diastolic 111, the patient not taking his home medications. At this point, we will reconcile. Might need IV p.r.n. medication for optimal control. 4. Hyperlipidemia. Reconcile medications, adjust treatment as needed. 5. Deep venous thrombosis prophylaxis. 6. History of asthma. This is a chronic problem medications. Job ID: [id number]
[2018-12-12] MEDS: Acetaminophen 325 MG TAB PO PRN (20:44)
[2018-12-13] MEDS: Morphine 2 MG/ML SYRINGE SLOW IVP PRN ×2 (01:49→05:52)
[2018-12-13] MEDS: cefTRIAXone\\ROCEPHIN 1 GM in Sodium Chloride 0.9% 100 ML IVPB SCH (01:57)
[2018-12-13] MEDS: Acetaminophen 325 MG TAB PO PRN (02:24)
[2018-12-13] MEDS ORDERED: Promethazine HCl 12.5 MG in Sodium Chloride 0.9% 50 ML IVPB PRN (04:00)
[2018-12-13] MEDS ORDERED: Promethazine HCl 12.5 MG in Sodium Chloride 0.9% 50 ML IVPB SCH (04:00)
[2018-12-13 07:46] LABS: Hemoglobin 12.7 g/dL (14.0-18.0); Mean Corpuscular HGB CONC 34.1 g/dL (32.0-36.0); Mean Corpuscular Hemoglobin 32.8 pg (27.0-31.0); Mean Corpuscular Volume 96.2 fL (78.0-98.0); Mean Platelet Volume 7.2 fL (7.4-10.4); Platelet Count 159 thou/uL (130-400); RBC Distribution Width 11.4 % (11.5-14.5); Red Blood Cell (RBC) Count 3.87 mill/uL (4.70-6.10); White Blood Cell (WBC) Count 3.6 thou/uL (4.8-10.8)
[2018-12-13 08:05] VITALS: BP 161/97; TEMP 97.5
[2018-12-13 08:05] LABS: ALT (SGPT) 15 U/L (8-55); AST (SGOT) 14 U/L (5-34); Albumin 3.4 g/dL (3.5-5.0); Alkaline Phosphatase 64 U/L (40-150); Anion Gap 13 mmol/L (10-20); BUN (Urea Nitrogen) 9 mg/dL (8.9-20.6); Bilirubin, Total 0.5 mg/dL (0.2-1.2); Calc. Creatinine Clearance 108 mL/min (70-130); Calcium 9.2 mg/dL (7.8-10.44); Carbon Dioxide 24 mmol/L (22-29); Chloride 108 mmol/L (98-107); Estimated GFR-MDRD 78; Globulin 2.7 g/dL (2.4-3.5); Glucose 106 mg/dL (70-105); Potassium 3.4 mmol/L (3.5-5.1); Protein, Total 6.1 g/dL (6.0-8.3); Sodium 142 mmol/L (136-145)
[2018-12-13] MEDS: Heparin 5,000 UNITS/ML VIAL SC SCH ×2 (08:10→14:43)
[2018-12-13 08:17] LABS: Band 1 % (5-11); Eosinophils 1 % (0-10); Lymphocytes 12 % (21-51); MDiff Complete? YES; Monocytes 5 % (0-10); Neutrophil 72 % (42-75); Platelet Morphology Comment Appears Adequate; RBC Morphology Normal; Reactive Lymphocytes 9 % (0-10)
[2018-12-13] MEDS: Fluticasone Propionate Nasal Spray 16 gm Bottle NASAL SCH (08:51)
--- NOTE | 2018-12-13 09:00 | PDOC.PN ---
- Subjective Encounter Start Date: 12/13/18 Encounter Start Time: 10:40 Subjective: No more abdominal pain. No more N/V. Did have one of his typical migraines -: start last night, left eye, rad to back of head, salivating. Usually uses -: Toradol at home. - Objective Resuscitation Status - Order Detail: 12/12/18 01:53 Resuscitation Status Routine Resuscitation Status: FULL: Full Resuscitation MAR Reviewed: Yes Vital Signs & Weight: Vital Signs (12 hours) Temp Pulse Resp BP BP Pulse Ox 12/13/18 07:59 97.5 F L 90 16 161/97 H 95 12/13/18 06:28 69 16 98 12/13/18 02:26 85 142/83 H 12/13/18 01:57 85 182/113 H Weight Weight 192 lb 9.6 oz I&O: 12/12/18 12/13/18 12/14/18 06:59 06:59 06:59 Intake Total 460 1746 Balance 460 1746 Result Diagrams: 12/13/18 07:11 12/13/18 07:11 Phys Exam - Physical Examination Constitutional: NAD HEENT: moist MMs Respiratory: no wheezing, no rales, no rhonchi Cardiovascular: RRR, no significant murmur Gastrointestinal: soft, non-tender, positive bowel sounds Musculoskeletal: no edema Neurological: non-focal, moves all 4 limbs Psychiatric: normal affect, A&O x 3 Dx/Plan (1) Abdominal pain Code(s): R10.9 - UNSPECIFIED ABDOMINAL PAIN Status: Acute Qualifiers: Abdominal location: generalized Qualified Code(s): R10.84 - Generalized abdominal pain Comment: Etiology unclear, resolving, continue IVF's, full liquids, advance to full diet. (2) GERD (gastroesophageal reflux disease) Code(s): K21.9 - GASTRO-ESOPHAGEAL REFLUX DISEASE WITHOUT ESOPHAGITIS Status: Chronic Comment: Continue PPI, may need outpt endoscopy (3) MICHAEL (acute kidney injury) Code(s): N17.9 - ACUTE KIDNEY FAILURE, UNSPECIFIED Status: Resolved Comment : Likely multifactorial given NSAIDs, Cozaar and dehydration, avoid nephrotoxic meds and continue IVF's, resolved with fluids (4) HTN (hypertension) Code(s): I10 - ESSENTIAL (PRIMARY) HYPERTENSION Status: Chronic Qualifiers: Hypertension type: essential hypertension Qualified Code(s): I10 - Essential (primary) hypertension Comment: Uncontrolled off Cozaar due to MICHAEL, continue Metoprolol and Amlodipine (5) Migraine Code(s): G43.909 - MIGRAINE, UNSP, NOT INTRACTABLE, WITHOUT STATUS MIGRAINOSUS Status: Acute Qualifiers: Migraine type: with aura Comment: Will try Benadryl and Reglan to avoid NSAID with hx of abd pain. - Plan cont current plan of care Can likely be discharged after treat migraine. Needs o/p GI followup. * . - Discharge Day Encounter end time: 10:50
[2018-12-13] MEDS ORDERED: diphenhydrAMINE 25 MG in Sodium Chloride 0.9% 50 ML IVPB SCH (11:00)
[2018-12-13] MEDS: Metoclopramide HCl 10 MG/2 ML VIAL IVP SCH ×2 (11:00→12:51)
[2018-12-13] MEDS ORDERED: Potassium Chloride 20 MEQ TAB PO SCH (11:00)
[2018-12-13] MEDS: Sodium Chloride 0.9% 1,000 ML IV SCH (11:43)
--- NOTE | 2018-12-14 04:53 | DIS ---
DATE OF ADMISSION: 12/12/2018 DATE OF DISCHARGE: 12/13/2018 PRIMARY CARE PHYSICIAN: Marcial Smith MD REASON FOR ADMISSION: Abdominal pain. DIAGNOSES AT DISCHARGE: 1. Abdominal pain, resolved, unclear etiology. 2. Gastroesophageal reflux disease. 3. Acute kidney injury, resolved. 4. Hypertension. 5. Migraine with aura. PROCEDURES: Abdominal ultrasound showing a possible small nonobstructing right renal calculus, fatty infiltration of the liver, otherwise unremarkable. CONSULTATIONS: None. SUMMARY OF HOSPITAL COURSE: This is a 48-year-old white male with a history of hypertension, obesity, hyperlipidemia, mild intermittent asthma without complications, gastroesophageal reflux disease, and acute kidney injury. This patient was transferred to our hospital from an outside hospital after being admitted 24 hours ago for severe abdominal pain. The patient's pain was midepigastric, radiating to the back, 10/10. No clear triggers. No fever. He had nausea and vomiting. CT was done. There was some possible inflammation of the tail of pancreas on the CT, but no definitive pancreatitis. No elevations of his lipase at that time. He did have some acute kidney injury and uncontrolled blood pressure. He requested transfer and was moved here. At our hospital, the patient had gradual resolution of his abdominal pain and on the day of discharge, it has completely gone. He had an ultrasound of the abdomen, which showed some fatty liver. His liver function tests were normal and his lipase was negative. His creatinine originally was 2.63 on admission and it was down to 1 at discharge. His blood pressure was elevated during hospitalization but on discharge, we were able to resume his losartan along with his other home blood pressure medications. The patient developed migraine the evening before discharge. This was his typical migraine behind the left eye radiating to the back of the head and associated with salivation as aura. The patient typically takes Toradol for these at home. However, given his recent issues with his stomach and history of gastroesophageal reflux disease, we did repeated dose of metoclopramide and a dose of Benadryl. This is significantly improving his headache. He will be discharged home once his headache resolves. DISCHARGE MANAGEMENT: Discharged home. FOLLOWUP: Follow up with Dr. Agrawal in 1 to 2 weeks. ACTIVITY: As tolerated. DIET: Regular diet. MEDICATIONS: The patient is to resume all his home medications. 1. Amlodipine 5 mg daily. 2. Flonase nasal spray 2 sprays in each nostril daily. 3. Combivent Respimat one puff inhaled twice a day. 4. Xopenex 2 puffs every 4 hours as needed. 5. Omeprazole 40 mg daily. 6. Losartan 100 mg daily. 7. Testosterone 0.25 mL intramuscular q.7 days. Job ID: [id number]
== END 2018-12-13 19:07 | disposition home or self-care (01) | DRG 392 ==
LOC: T4-B 12-12 00:52
PROVIDERS: ADMIT Hospitalist; ATTEND Hospitalist
DX: R10.84 Generalized abdominal pain (principal); N17.9 Acute kidney failure, unspecified; K21.9 Gastro-esophageal reflux disease without esophagitis; E86.0 Dehydration; I10 Essential (primary) hypertension; G43.109 Migraine with aura, not intractable, without status migrainosus; E66.9 Obesity, unspecified; J45.20 Mild intermittent asthma, uncomplicated; N20.0 Calculus of kidney; K76.0 Fatty (change of) liver, not elsewhere classified; Z68.28 Body mass index [BMI] 28.0-28.9, adult
CPT/HCPCS: 36415; 76705; 80048; 80053; 83690; 85007; 85025; 85027; 87086; 94640; J0360; J0696; J1200; J1644; J2270; J2405; J2550; J2765; J7050; J7620

== ENCOUNTER 2019-06-13 12:38 | Outpatient (CLI) | payer OTHER | END 2019-06-13 12:39 | disposition home or self-care (01) | LOC: ULT 12:38 | PROVIDERS: ATTEND Family Medicine | DX: I10 Essential (primary) hypertension (principal); I07.1 Rheumatic tricuspid insufficiency | CPT/HCPCS: 93306 ==